=== PATIENT | male | born 1970 | race Two or more races ===

== ENCOUNTER 2020-10-26 14:07 | Emergency (ER) | payer SELFPAY ==
[~2020-10-26] VITALS: Ht 170.2 cm; Wt 98.0 kg
--- NOTE | 2020-10-26 14:58 | NUR ---
PT WALKED BACK FROM TRIAGE WITH CHIEF COMPLAINT OF RIGHT ABD PAIN WORSENING FOR 3 MONTHS.
[2020-10-26] MEDS ORDERED: ONDANSETRON 2MG/ML, 2ML IVPush ONE (15:00)
[2020-10-26] MEDS ORDERED: MORPHINE SULFATE 4 MG/ML, 1ML IVPush PRN (15:00)
[2020-10-26] MEDS ORDERED: SODIUM CHLORIDE FLUSH 10ML SYR IVF ONE (15:00)
[2020-10-26 15:01] LABS: BASOPHILS % (AUTO) 1 % (0-1); EOSINOPHILS % (AUTO) 4 % (1-7); LYMPHOCYTES % (AUTO) 21 % (22-44); MEAN CORPUSCULAR HEMOGLOBIN 29.6 pg (27.5-34.5); MEAN CORPUSCULAR HGB CONC 34.6 g/dL (33.2-36.2); MEAN PLATELET VOLUME 7.4 fL (7.4-10.4); MONOCYTES % (AUTO) 8 % (2-9); NEUTROPHILS % (AUTO) 67 % (42-75); PLATELET COUNT 361 x10^3/uL (130-400); RED BLOOD COUNT 4.96 x10^6/uL (4.38-5.82); RED CELL DISTRIBUTION WIDTH 13.4 % (9.4-14.8)
[2020-10-26 15:11] LABS: ALANINE AMINOTRANSFERASE 45 U/L (12-78); ALBUMIN 2.4 g/dL (3.4-5.0); ANION GAP 6 mmol/L (5-15); CALCIUM 8.4 mg/dL (8.5-10.1); CHLORIDE 101 mmol/L (98-107); CREATININE 0.82 mg/dL (0.7-1.3)
[2020-10-26] MEDS ORDERED: ONDANSETRON 2MG/ML, 2ML ONE (15:11)
[2020-10-26] MEDS ORDERED: MORPHINE SULFATE 4 MG/ML, 1ML ONE (15:12)
[2020-10-26 15:13] LABS: ALKALINE PHOSPHATASE 134 U/L (45-117); BILIRUBIN,TOTAL 0.3 mg/dL (0.2-1.0); TOTAL PROTEIN 7.4 g/dL (6.4-8.2)
[2020-10-26 15:15] VITALS: BP 175/104
--- NOTE | 2020-10-26 15:16 | NUR ---
ULTRA SOUND AT BEDSIDE
[2020-10-26 15:38] LABS: MICROSCOPIC INDICATED
--- NOTE | 2020-10-26 16:01 | NUR ---
PT resting in bed, call light in reach.
--- NOTE | 2020-10-26 16:39 | NUR ---
GUILLAUME Vora at bedside to discuss POC
--- NOTE | 2020-10-26 16:48 | NUR ---
DC INSTRUCTIONS REVIEWED
== END 2020-10-26 16:56 | disposition home or self-care (01) ==
LOC: ED 16:30
DX: R10.11 Right upper quadrant pain (principal); E11.65 Type 2 diabetes mellitus with hyperglycemia
CPT/HCPCS: 36415; 76700; 80053; 81001; 83690; 85025; 96374; 96375; 99284; J2270; J2405